=== PATIENT | male | born 1955 | race Caucasian/White ===

== ENCOUNTER 2018-08-19 13:00 | Outpatient (CLI) ==
--- NOTE | 2018-08-22 11:18 | HOLTER ---
PATIENT INFORMATION AND COMMENTS Attending Physician: DR. MACI ACUNA Indications: PALPITATIONS __ Patient Medications: SOTALOL, TRIPILEX, ASA, SIMVASTATIN, OMEPRAZOLE, FENOFIBRATE __ Pre-procedure Summary: Protocol: Standard Heart Rate Started: 08/19/18 1314 Minimum: 56 BPM Weight: 197 LBS Ended: 08/20/18 1314 Maximum: 172 BPM Height: 74 LBS Duration: 24 HOURS Average: 76 BPM _ INTERPRETATIONS/OBSERVATIONS: 1. BASIC RHYTHM: SINUS, RATE 56 BPM TO 160 BPM, AVERAGE 75 BPM 2. RARE PVC'S AND INFREQUENT PAC'S NOTED 3. TWO SHORT RUNS OF SVT CONSISTING OF 6 TO 7 BEATS AND 1 SUSTAINED RN OF SVT WITH RATE 160 BPM--LASTING [address] NO [address]-T WAVE CHANGES FROM BASELINE 5. SYMPTOMS OF PALPITATIONS RELATED TO SVT THE PATIENT HAD MTDD
== END 2018-08-19 13:01 | disposition home or self-care (01) ==
LOC: CAR 13:00
PROVIDERS: ATTEND Internal Medicine
DX: R00.2 Palpitations (principal)
CPT/HCPCS: 93227

== ENCOUNTER 2018-08-30 08:43 | Outpatient (CLI) ==
--- NOTE | 2018-08-30 09:41 | DEXA ---
EXAM: BONE DENSITOMETRY HISTORY: Osteoporosis FINDINGS: Exam of the lumbar spine was not performed. Exam of the hips revealed a total mean bone mineral density of 0.905 g/cm2. Mean hip T score: -1.4 Mean hip age-matched Z score: -1.1 Prior study of 01/30/2014 had a mean bone mineral density of 0.905. FRAX WHO Fracture Risk Assessment. Ten year probability of fracture (%). Major Osteoporotic Fracture 13.8% Hip Fracture 1.4%. IMPRESSION: Values presented indicate a mean hip T-score of -1.4 consistent with osteopenia.
== END 2018-08-30 08:44 | disposition home or self-care (01) ==
LOC: RAD 08:43
PROVIDERS: ATTEND Internal Medicine
DX: M81.0 Age-related osteoporosis without current pathological fracture (principal)

== ENCOUNTER 2019-01-19 10:04 | Outpatient (CLI) ==
--- NOTE | 2019-01-19 11:26 | DI ---
EXAM: Pelvis one-view HISTORY: Pain in hips COMPARISON: None FINDINGS: The bones are normal. Sacroiliac joints intact. Hip joints appear normal. No focal soft t issue abnormality. IMPERSSION: Normal examination.
== END 2019-01-19 10:05 | disposition home or self-care (01) ==
LOC: RAD 10:04
PROVIDERS: ATTEND Internal Medicine
DX: R10.2 Pelvic and perineal pain (principal); M25.559 Pain in unspecified hip